=== PATIENT | female | born 1980 | race Hispanic/Latino ===

== ENCOUNTER 2017-06-11 16:45 | Emergency (ER) | payer BC ==
[~2017-06-11] VITALS: Ht 167.6 cm; Wt 99.8 kg
[2017-06-11] MEDS ORDERED: ONDANSETRON HCL INJ 2 MG/ML VIAL IV STA (17:16)
[2017-06-11] MEDS ORDERED: MORPHINE SULFATE 4 MG/ML SYR IV STA (17:16)
[2017-06-11] MEDS ORDERED: SODIUM CHLORIDE 0.9% 1000ML 1,000 ML IV STA (17:16)
[2017-06-11] MEDS ORDERED: DIATRIZOATE MEGL/DIATRIZOA SOD 30 ML BTL PO ONE (17:24)
[2017-06-11 17:34] LABS: BASOPHILS % 0.5 % (0.0-1.0); EOSINOPHILS # (AUTO) 0.3 (0.0-0.4); EOSINOPHILS % 4.2 % (0.0-6.0); HEMATOCRIT 34.9 % (34.2-44.1); HEMOGLOBIN 9.7 g/dL (12.0-16.0); LYMPHOCYTES # (AUTO) 1.3 (1.0-3.2); LYMPHOCYTES % 19.7 % (18.0-39.1); MEAN CORPUSCULAR HEMOGLOBIN 19.2 pg (28-32); MEAN CORPUSCULAR HGB CONC 27.8 g/dL (31-35); MONOCYTES # (AUTO) 0.7 (0.2-0.8); MONOCYTES % 10.3 % (4.4-11.3); NEUTROPHILS # (AUTO) 4.3 (2.1-6.9); PLATELET COUNT 410 x10e3/uL (140-360); RED BLOOD COUNT 5.06 x10e6/uL (3.6-5.1); RED CELL DISTRIBUTION WIDTH 30.5 % (11.7-14.4)
[2017-06-11 17:37] LABS: BILIRUBIN,URINE NEGATIVE (NEGATIVE); COLOR,URINE YELLOW (YELLOW); KETONES,URINE NEGATIVE (NEGATIVE); LEUKOCYTE ESTERASE ,URINE 2+ (NEGATIVE); NITRITE,URINE NEGATIVE (NEGATIVE); URINE UROBILINOGEN 1 mg/dL (0.2 - 1)
[2017-06-11 17:40] LABS: CLARITY,URINE SL CLOUDY (CLEAR)
[2017-06-11 17:44] LABS: PROTEIN,URINE DIPSTICK TRACE (NEGATIVE)
[2017-06-11 17:49] LABS: ALANINE AMINOTRANSFERASE 23 IU/L (0-55); ALBUMIN 3.9 g/dL (3.5-5.0); ALKALINE PHOSPHATASE 60 IU/L (40-150); ANION GAP 11.4 mmol/L (8-16); BLOOD UREA NITROGEN 11 mg/dL (7-26); BUN/CREATININE RATIO 15 (6-25); CALCIUM 8.6 mg/dL (8.4-10.2); CARBON DIOXIDE 22 mmol/L (22-29); CHLORIDE 112 mmol/L (98-107); CREATINE KINASE 68 IU/L (29-168); CREATININE, SERUM 0.71 mg/dL (0.57-1.11); EST GLOMERULAR FILTRATION RATE > 60 ML/MIN (60-); GLUCOSE 84 mg/dL (74-118); LIPASE 18 U/L (8-78); POTASSIUM 3.4 mmol/L (3.5-5.1); SODIUM 142 mmol/L (136-145)
[2017-06-11 17:52] LABS: BACTERIA,URINE MANY /HPF; EPITHELIAL CELLS,URINE MODERATE /LPF; RBC,URINE 0-5 /HPF (0-5)
--- NOTE | 2017-06-11 18:00 | Diagnostic Imaging Report ---
PROCEDURE: A single AP view of the chest. COMPARISON: None. INDICATIONS: ABDOMINAL PAIN, COUGH FINDINGS: Lines/tubes: None. Lungs: The lungs are well inflated and clear. There is no evidence of pneumonia or pulmonary edema. Pleura: There is no pleural effusion or pneumothorax. Heart and mediastinum: The heart and the mediastinum are unremarkable. Bones: No acute bony abnormality. IMPRESSION: 1. No acute cardiopulmonary disease. Dictated by: Merritt Machado M.D. on 06/11/2017 at 17:59 Electronically approved by: Merritt Machado M.D. on 06/11/2017 at 17:59
[2017-06-11] MEDS ORDERED: MORPHINE SULFATE 2 MG/ML SYR ONE (18:16)
[2017-06-11] MEDS ORDERED: SODIUM CHLORIDE 0.9% 50ML 50 ML ONE (19:19)
[2017-06-11] MEDS ORDERED: IOPAMIDOL 370 MG/ML 200 ML INFUS..BTL INJ ONE (19:19)
--- NOTE | 2017-06-11 19:21 | Diagnostic Imaging Report ---
CT Abdomen And Pelvis with Intravenous Contrast INDICATION: Right lower quadrant pain TECHNIQUE: Thin collimation axial images obtained from the diaphragm to the level of the pubic symphysis following the uneventful administration of 100 cc of low osmolar, nonionic intravenous contrast. RADIATION DOSE: Total DLP: 793 mGy*cm Estimated effective dose: (DLP x 0.015 x size factor) mSv CTDIvol has been reviewed. It is below the limits set by the Radiation Protocol Committee (RPC). COMPARISON: None. ABDOMEN FINDINGS: Lung Bases: Clear. The visualized portions of the mediastinum are normal.. Liver: Normal attenuation. No evidence for mass. Gallbladder: Absent. No biliary ductal dilatation. Pancreas: Normal attenuation without mass or ductal dilatation. Spleen: Normal in size. No evidence of mass.. Adrenal Glands: No evidence for mass. Kidneys: Right: Normal enhancement. No mass. No hydronephrosis. Left: Normal enhancement. No mass. No hydronephrosis. Lymph Nodes: No lymphadenopathy. Aorta: Normal in diameter. No free fluid or fluid collection. PELVIS FINDINGS: Bowel: Small Bowel: Normal in caliber with normal wall thickness. Large Bowel: Normal in caliber with normal wall thickness. Appendix: Normal appendix. Bladder: Normal. The uterus is present and contains an intrauterine device terminating in the body of the uterus and not within the fundus. There is a corpus luteum in the right ovary with a small amount of adjacent ascites. The left ovary is normal. Bones: Unremarkable for age. IMPRESSION: 1. Normal appendix. No evidence for bowel obstruction or inflammation.. 2. Corpus luteum in the right ovary. 3. Low-lying intrauterine device as described above. 4. Cholecystectomy. Normal biliary tree. Signed by: Dr. Nery Valdez MD on 06/11/2017 7:18 PM
[2017-06-11 19:45] VITALS: BP 122/74
[2017-06-11 20:17] LABS: ANISOCYTOSIS SLIGHT; HYPOCHROMASIA SLIGHT; PLATELET ESTIMATE SLIGHTLY INCREASED; PLATELET MORPHOLOGY COMMENT NORMAL; RBC MORPHOLOGY COMMENT NORMAL
== END 2017-06-11 19:48 | disposition home or self-care (01) ==
LOC: ER 16:45
DX: R10.33 Periumbilical pain (principal); R11.2 Nausea with vomiting, unspecified; N39.0 Urinary tract infection, site not specified
CPT/HCPCS: 36415; 71045; 74177; 80053; 81001; 82550; 82553; 83690; 84484; 84702; 85025; 87086; 87400; 93005; 99284; J2270; J2405; J7030; Q9967